=== PATIENT | male | born 1965 | race Caucasian/White ===

== ENCOUNTER → 2017-02-18 | Outpatient (CLI) | payer OTHER | END | disposition home or self-care (01) | LOC: CFH 15:54 | PROVIDERS: ATTEND Internal Medicine Cardiovascular Disease | DX: Z01.810 Encounter for preprocedural cardiovascular examination (principal); I10 Essential (primary) hypertension | CPT/HCPCS: 93306 ==

== ENCOUNTER → 2017-02-21 | Outpatient (CLI) | payer OTHER ==
[~2017-02-21] MED LIST: REGADENOSON 0.4 MG/5 ML SYRINGE ONE
== END | disposition home or self-care (01) ==
LOC: CFH 12:06
PROVIDERS: ATTEND Internal Medicine Cardiovascular Disease
DX: Z01.810 Encounter for preprocedural cardiovascular examination (principal); I50.1 Left ventricular failure, unspecified
CPT/HCPCS: 78452; 93017; A9502; J2785

== ENCOUNTER → 2017-03-23 | Outpatient (CLI) | payer OTHER ==
[~2017-03-23] MED LIST changes: +CARV-39 PO; +FEXO180T15 PO; +OXYC15TA PO; -REGADENOSON 0.4 MG/5 ML SYRINGE ONE; +SIMV40TA3 PO; +TIZA4CAP PO; +TRAZ100T15 PO
[2017-03-23 09:11] LABS: BASOPHILS # (AUTO) 0.02 x10^3/uL (0-0.1); BASOPHILS % (AUTO) 0 % (0-1); EOSINOPHILS # (AUTO) 0.14 x10^3/uL (0-0.4); EOSINOPHILS % (AUTO) 2 % (1-7); LYMPHOCYTES # (AUTO) 3.15 x10^3/uL (1-3.4); LYMPHOCYTES % (AUTO) 38 % (22-44); MD NO; MEAN CORPUSCULAR HEMOGLOBIN 33.1 pg (27.5-34.5); MEAN CORPUSCULAR HGB CONC 34.1 g/dL (33.2-36.2); MEAN CORPUSCULAR VOLUME 97.3 fL (81-97); MEAN PLATELET VOLUME 7.9 fL (7.4-10.4); MONOCYTES # (AUTO) 0.84 x10^3/uL (0.2-0.8); MONOCYTES % (AUTO) 10 % (2-9); NEUTROPHILS # (AUTO) 4.22 x10^3/uL (1.8-6.8); NEUTROPHILS % (AUTO) 50 % (42-75); PLATELET COUNT 204 x10^3/uL (130-400); RED BLOOD COUNT 4.62 x10^6/uL (4.38-5.82); RED CELL DISTRIBUTION WIDTH 13.6 % (9.4-14.8)
[2017-03-23 09:12] LABS: INTERNATIONAL NORMALIZED RATIO 0.95 (0.93-1.1); PROTHROMBIN TIME 9.8 Seconds (9.6-11.5)
[2017-03-23 09:16] LABS: ALANINE AMINOTRANSFERASE 50 U/L (12-78); ALBUMIN 3.7 g/dL (3.4-5.0); ANION GAP 6 mmol/L (5-15); CALCIUM 8.3 mg/dL (8.5-10.1); CHLORIDE 106 mmol/L (98-107); CREATININE 0.69 mg/dL (0.7-1.3)
[2017-03-23 09:18] LABS: ALKALINE PHOSPHATASE 102 U/L (45-117); BILIRUBIN,TOTAL 0.7 mg/dL (0.2-1.0); TOTAL PROTEIN 7.1 g/dL (6.4-8.2)
[2017-03-23 10:27] LABS: HEMOGLOBIN A1C 5.3 % (4.2-6.3)
== END | disposition home or self-care (01) ==
LOC: STAR 08:04
PROVIDERS: ATTEND Orthopaedic Surgery
DX: Z01.818 Encounter for other preprocedural examination (principal); M87.851 Other osteonecrosis, right femur
CPT/HCPCS: 36415; 80053; 83036; 85025; 85610; 85730; 86703; 87081; 87147; 87899; G0435

== ENCOUNTER 2017-03-28 11:29 | Inpatient (IN) | payer OTHER ==
[~2017-03-28] VITALS: Ht 175.3 cm; Wt 72.5 kg
[~2017-03-28 11:29] MED LIST changes: +EPINEPHRINE 1 MG/ML, 1ML ONE; +KETOROLAC 60 MG/2 ML ONE; +ROPIvacaine/PF 0.2%, 20 ML ONE; +SODIUM CHLORIDE 0.9% 100 ML ONE; +TRANEXAMIC ACID 100 MG/ML, 10ML ONE
[2017-03-28] MEDS ORDERED: VANCOMYCIN PER PHARMACY MC ONE (11:45)
[2017-03-28] MEDS ORDERED: LACTATED RINGERS 1,000 ML IV SCH (11:45)
[2017-03-28] MEDS ORDERED: MIDAZOLAM 1 MG/ML, 2ML ONE (11:57)
[2017-03-28] MEDS ORDERED: FENTANYL PF 250 MCG/5ML ONE (11:57)
[2017-03-28] MEDS ORDERED: LIDOCAINE 1%, 2ML SQ PRN (12:00)
[2017-03-28] MEDS ORDERED: VANCOMYCIN 1,500 MG in SODIUM CHLORIDE 0.9% 250 ML IV ONE (12:00)
[2017-03-28] MEDS ORDERED: GABAPENTIN 300 MG CAPSULE PO ONE (12:00)
[2017-03-28] MEDS ORDERED: ACETAMINOPHEN 500 MG TABLET PO ONE (12:00)
[2017-03-28] MEDS ORDERED: ACET-76 PO (12:20)
[2017-03-28] MEDS ORDERED: MUPI22OI2 NAS (12:20)
[2017-03-28] MEDS ORDERED: LIDOCAINE-MPF 1%, 2ML ONE (12:24)
[2017-03-28] MEDS ORDERED: KETAMINE 10 MG/ML, 20ML ONE (13:16)
[2017-03-28] MEDS ORDERED: CEFAZOLIN 1,000 MG ONE (13:28)
[2017-03-28] MEDS ORDERED: DEXAMETHASONE 4 MG/ML, 1ML ONE (13:28)
[2017-03-28] MEDS ORDERED: LIDOCAINE 4%, 4 ML SYR/CANN TP ONE (13:28)
[2017-03-28] MEDS ORDERED: ROCURONIUM 10 MG/ML,10ML ONE (13:28)
[2017-03-28] MEDS ORDERED: SUCCINYLCHOLINE 20 MG/ML, 10ML ONE (13:28)
[2017-03-28] MEDS ORDERED: ONDANSETRON 2MG/ML, 2ML ONE (13:28)
[2017-03-28] MEDS ORDERED: SENNA/DOCUSATE TABLET PO PRN (13:30)
[2017-03-28] MEDS ORDERED: MAGNESIUM HYDROXIDE 8%, 30ML UDC PO PRN (13:30)
[2017-03-28] MEDS ORDERED: DIAZEPAM 5 MG TABLET PO PRN (13:30)
[2017-03-28] MEDS ORDERED: ACETAMINOPHEN 650 MG/20.3 ML UDC PO PRN (13:30)
[2017-03-28] MEDS ORDERED: ALUMINUM/MAG/SIMETHICONE 30 ML UDC PO PRN (13:30)
[2017-03-28] MEDS ORDERED: DIPHENHYDRAMINE 50 MG CAPSULE PO PRN (13:30)
[2017-03-28] MEDS ORDERED: TRANEXAMIC ACID 1,000 MG in SODIUM CHLORIDE 0.9% 100 ML IVPB ONE (13:30)
[2017-03-28] MEDS ORDERED: HYDROmorphone 1 MG/ML, 1ML IV PRN (13:30)
[2017-03-28] MEDS ORDERED: ONDANSETRON 4 MG TABLET PO PRN (13:30)
[2017-03-28] MEDS ORDERED: ONDANSETRON 2MG/ML, 2ML IV PRN (13:30)
[2017-03-28] MEDS ORDERED: ROPIvacaine/PF 0.2%, 20 ML ONE (13:54)
[2017-03-28] MEDS ORDERED: HYDROmorphone 2 MG/ML, 1ML ONE ×2 (13:55→15:36)
[2017-03-28] MEDS ORDERED: ONDANSETRON 2MG/ML, 2ML IVPush PRN (14:00)
[2017-03-28] MEDS ORDERED: OXYcodone 5 MG/5 ML ORAL.SOL UDC PO PRN (14:00)
[2017-03-28] MEDS ORDERED: ACETAMINOPHEN 325 MG TABLET PO PRN (14:00)
[2017-03-28] MEDS ORDERED: HYDROcodone/APAP 7.5-325MG/15ML UDC PO PRN (14:00)
[2017-03-28] MEDS ORDERED: ACETAMINOPHEN 650 MG/20.3 ML UDC ONE (15:11)
[2017-03-28] MEDS ORDERED: FENTANYL PF 100 MCG/2ML ONE (15:11)
[2017-03-28] MEDS ORDERED: OXYcodone 5 MG/5 ML ORAL.SOL UDC ONE (15:11)
[2017-03-28] MEDS: FENTANYL PF 100 MCG/2ML IV PRN ×2 (15:13→15:25)
[2017-03-28] MEDS: HYDROmorphone 1 MG/ML, 1ML IV PRN ×2 (15:39→15:46)
[2017-03-28] MEDS: ASPIRIN 81 MG TABLET EC PO SCH (17:52)
[2017-03-28] MEDS: D5%-0.45NACL+KCL 20MEQ 1,000 ML IV SCH (17:52)
[2017-03-28 19:56] VITALS: BP 124/78
[2017-03-28] MEDS: OxyconTIN ER 10 MG TAB.ER PO SCH (21:28)
[2017-03-28] MEDS: OXYcodone IR 5MG TABLET PO PRN (21:28)
[2017-03-28] MEDS: CEFAZOLIN PMX 1GM/50ML 50 ML IVPB SCH (23:14)
[2017-03-29 00:09] VITALS: BP 112/67
[2017-03-29] MEDS: OXYcodone IR 5MG TABLET PO PRN ×3 (01:27→09:44)
[2017-03-29 04:31] VITALS: BP 139/72
[2017-03-29] MEDS: D5%-0.45NACL+KCL 20MEQ 1,000 ML IV SCH (05:12)
[2017-03-29] MEDS: ASPIRIN 81 MG TABLET EC PO SCH (05:48)
[2017-03-29] MEDS ORDERED: DEXAMETHASONE 4 MG/ML, 1ML IVPush SCH (06:00)
[2017-03-29 07:06] VITALS: BP 123/64
[2017-03-29] MEDS: CEFAZOLIN PMX 1GM/50ML 50 ML IVPB SCH (07:35)
[2017-03-29] MEDS ORDERED: TAMSULOSIN 0.4 MG CAP.ER.24H PO SCH (09:00)
[2017-03-29] MEDS: OxyconTIN ER 10 MG TAB.ER PO SCH (09:01)
[2017-03-29] MEDS ORDERED: OXYC5CAP2 PO (10:25)
[2017-03-29] MEDS ORDERED: OXYC10TA47 PO (10:26)
[2017-03-29] MEDS ORDERED: DOCU-131 PO (10:26)
[2017-03-29] MEDS ORDERED: ASPI-496 PO (10:26)
[2017-03-29] MEDS ORDERED: ONDA4TAB7 PO (10:27)
[2017-03-29] MEDS ORDERED: CELE200C PO (10:27)
[2017-03-29] MEDS ORDERED: DIAZ5TAB PO (10:28)
[2017-03-29] MEDS ORDERED: TRAM50TA2 PO (10:29)
[2017-03-29] MEDS ORDERED: KETOROLAC 30 MG/1 ML IV SCH (13:30)
== END 2017-03-29 11:00 | disposition home or self-care (01) | DRG 470 ==
LOC: ORIP 11:29 → 4NOR 16:15 → DCLOUNGE 03-29 10:52
PROVIDERS: ADMIT Orthopaedic Surgery; ATTEND Orthopaedic Surgery
PROC: 0SR90JZ Replacement of Right Hip Joint with Synthetic Substitute, Open Approach (ICD-10-PCS; principal; 2017-03-28 13:30)
DX: M87.9 Osteonecrosis, unspecified (principal); J30.2 Other seasonal allergic rhinitis; M21.70 Unequal limb length (acquired), unspecified site
CPT/HCPCS: 36415; 72170; 85014; 85018; 86850; 86900; C1713; J0171; J0690; J1100; J1170; J1885; J2250; J2405; J2795; J3010; J3370; J3490; C1776; J0330; J3480; J7050; J7120